=== PATIENT | female | born 2000 | race Caucasian/White ===

== ENCOUNTER 2023-04-16 01:04 | Emergency (ER) | payer OTHER ==
[~2023-04-16] VITALS: Ht 175.3 cm; Wt 108.9 kg
[2023-04-16 01:05] VITALS: BP 123/76; PULSE 86; RESP 16; TEMP 98.7; O2SAT 98
--- NOTE | 2023-04-16 01:11 | NUR ---
TO LOBBY FOLLOWING TRIAGE
--- NOTE | 2023-04-16 05:01 | NUR ---
PT TO BED 02 CALL LIGHT W/IN REACH
[2023-04-16] MEDS ORDERED: AMOXIL/CLAVULANATE 875/125 MG 1 TAB PO ONE (05:20)
[2023-04-16] MEDS ORDERED: ACETAMINOPHEN EXTRA STRENGTH 500 MG TAB PO ONE (05:20)
[2023-04-16] MEDS ORDERED: ACET-10509 PO (05:24)
[2023-04-16] MEDS ORDERED: AMOX1TAB8 PO (05:24)
[2023-04-16] MEDS ORDERED: CHLO237S1 PO (05:26)
--- NOTE | 2023-04-16 05:43 | NUR ---
UNABLE TO SCAN PATIENT TO ADMINISTER MEDICATIONS DUE TO INCORRECT BAR CODE PRINTING OUT FROM ER. CHARGE NURSE (CHRISTINE IS AWARE) MEDICATION: AUGMENTIN TYLENOL 1000MG
[2023-04-16 06:45] VITALS: BP 123/76; PULSE 86; RESP 16; TEMP 98.7; O2SAT 98
--- NOTE | 2023-04-16 06:45 | NUR ---
Patient discharged with v/s stable. Written and verbal after care instructions given and explained. Patient alert, oriented and verbalized understanding of instructions. Ambulatory with steady gait. All questions addressed prior to discharge. ID band removed. Patient advised to follow up with PMD. Rx of SINUSITIS, AMOXICILLIN, AND CLOREHEXIDINE GLUCONATE given. Patient educated on indication of medication including possible reaction and side effects. Opportunity to ask questions provided and answered. DX: (1)SINUSITIS, ADULT, (2)DENTAL CARIES, SCIATICA
== END 2023-04-16 06:45 | disposition home or self-care (01) ==
LOC: MED 01:04
DX: O99.512 Diseases of the respiratory system complicating pregnancy, second trimester (principal); J01.20 Acute ethmoidal sinusitis, unspecified; L03.211 Cellulitis of face; K02.9 Dental caries, unspecified; M54.50 Low back pain, unspecified; M54.31 Sciatica, right side; Z3A.14 14 weeks gestation of pregnancy
CPT/HCPCS: 99283

== ENCOUNTER 2024-07-16 09:29 | Emergency (ER) | payer OTHER ==
[~2024-07-16] VITALS: Ht 175.3 cm; Wt 114.8 kg
[~2024-07-16 09:29] MED LIST: ACET500T99 PO; AMOX1TAB8 PO; CHLO237S1 PO
[2024-07-16 09:40] VITALS: BP 111/59; PULSE 65; RESP 16; TEMP 97.3; O2SAT 99
[2024-07-16 11:39] LABS: BASOPHILS # (AUTO) 0.1 K/uL (0.00-0.22); BASOPHILS % (AUTO) 0.5 % (0.0-2.0); EOSINOPHILS # (AUTO) 0.1 K/uL (0-0.4); HEMATOCRIT 37.8 % (36-48); HEMOGLOBIN 12.7 g/dL (12.0-16.0); LYMPHOCYTES # (AUTO) 2.3 K/uL (2.5-16.5); LYMPHOCYTES % (AUTO) 20.2 % (20.5-51.1); MEAN CORPUSCULAR HEMOGLOBIN 27 pg (27-31); MEAN CORPUSCULAR HGB CONC 34 g/dL (33-37); MEAN CORPUSCULAR VOLUME 80.7 fL (80-94); MONOCYTES # (AUTO) 0.8 K/uL (0.8-1.0); NEUTROPHILS # (AUTO) 8.2 K/uL (1.8-7.7); NEUTROPHILS % (AUTO) 71.3 % (42.2-75.2); PLATELET COUNT (AUTO) 318 K/uL (140-450); RED BLOOD CELL COUNT(AUTO) 4.69 MIL/uL (4.20-5.40); RED CELL DISTRIBUTION WIDTH 13.5 % (11.6-13.7); WHITE BLOOD COUNT (AUTO) 11.4 K/uL (4.8-10.8)
[2024-07-16] MEDS: ONDANSETRON 4 MG/2 ML VIAL IVP ONE (11:39)
[2024-07-16] MEDS: KETOROLAC 30 MG/ML VIAL IVP ONE (11:41)
[2024-07-16 11:59] LABS: ANION GAP 8.2 (8-16); CALCIUM 9.1 mg/dL (8.5-10.1); CARBON DIOXIDE 28.3 mmol/L (21-32); CREATININE 0.8 mg/dL (0.6-1.3); POTASSIUM 3.5 mmol/L (3.5-5.1)
[2024-07-16 12:16] LABS: ALBUMIN 3.3 g/dL (3.4-5.0); BILIRUBIN,DIRECT 0.1 mg/dL (0.0-0.3); TOTAL BILIRUBIN 0.6 mg/dL (0.0-1.0); TOTAL PROTEIN, SERUM 7.4 g/dL (6.4-8.2)
[2024-07-16] MEDS ORDERED: MIRABULK PO (14:32)
[2024-07-16] MEDS ORDERED: FAMO-92 PO (14:32)
[2024-07-16] MEDS ORDERED: ONDA-188 PO (14:32)
[2024-07-16 15:39] VITALS: BP 111/59; PULSE 65; RESP 16; TEMP 97.3; O2SAT 99
[2024-07-16 18:30] LABS: APPEARANCE,URINE CLEAR (CLEAR); BILIRUBIN,URINE 1+ (NEGATIVE); BLOOD, URINE NEGATIVE (NEGATIVE); COLOR,URINE ORANGE (YELLOW); LEUKOCYTE ESTERASE ,URINE NEGATIVE (NEGATIVE); NITRITE, URINE POSITIVE (NEGATIVE); PH,URINE 7.5 (5.0-9.0); PROTEIN,URINE 1+ (NEGATIVE); UGLUCOSE TRACE (NEGATIVE)
[2024-07-16 18:39] LABS: ICTOTEST NEGATIVE (NEGATIVE)
[2024-07-16 18:42] LABS: BACTERIA,URINE 10-30 (MOD) /HPF (None Seen); MUCUS,URINE 1+ /LPF (None Seen); RBC,URINE 0-5 /HPF (0-5); SQUAMOUS EPITHELIAL CELL,UR 4-10 (MOD) /LPF (0-3 (FEW)); WBC,URINE 0-5 /HPF (0-5)
== END 2024-07-16 15:42 | disposition home or self-care (01) ==
LOC: MED 09:29
DX: K29.70 Gastritis, unspecified, without bleeding (principal); K59.00 Constipation, unspecified; Z79.899 Other long term (current) drug therapy
CPT/HCPCS: 36415; 76705; 80048; 80076; 81001; 81025; 83690; 85025; 87086; 96374; 96375; 99285; J1885; J2405